=== PATIENT | male | born 1950 | race Caucasian/White ===

== ENCOUNTER → 2016-07-28 | Outpatient (CLI) | payer OTHER, MEDICARE | LOC: FIMAGING 09:17 | PROVIDERS: ATTEND Internal Medicine Hematology & Oncology | DX: Z12.89 Encounter for screening for malignant neoplasm of other sites (principal); R97.20 Elevated prostate specific antigen [PSA]; C61 Malignant neoplasm of prostate | CPT/HCPCS: 78306; A9503 ==

== ENCOUNTER → 2016-08-12 | Outpatient (CLI) | payer OTHER, MEDICARE | LOC: CIMAGING 10:06 | PROVIDERS: ATTEND Internal Medicine Hematology & Oncology | DX: Z03.89 Encounter for observation for other suspected diseases and conditions ruled out (principal); K76.89 Other specified diseases of liver; K76.0 Fatty (change of) liver, not elsewhere classified; Z85.46 Personal history of malignant neoplasm of prostate | CPT/HCPCS: 76705-PO ==

== ENCOUNTER → 2017-03-02 | Outpatient (CLI) | payer OTHER, MEDICARE | LOC: FIMAGING 09:22 | PROVIDERS: ATTEND Internal Medicine Hematology & Oncology | DX: S22.42XA Multiple fractures of ribs, left side, initial encounter for closed fracture (principal); C61 Malignant neoplasm of prostate | CPT/HCPCS: 78306; A9503 ==

== ENCOUNTER 2017-03-11 13:45 | Emergency (ER) | payer OTHER, MEDICARE ==
[2017-03-11 13:56] VITALS: TEMP 97.7
--- NOTE | 2017-03-11 14:05 | EDPHY ---
H & P Stated Complaint: lac to l hand with saw Time Seen by Provider: 03/11/17 14:04 HPI/ROS: HPI: This is a 67-year-old male presents with Chief Complaint: lac to l hand with saw Location: Left hand Quality: Laceration Duration: Prior to arrival Signs and Symptoms: + bleeding, no radiation, no numbness, no weakness, no tingling, no incontinence, no decreased range of motion, no swelling, no pain Timing: Acute Severity: Moderate Context: Patient reports he was 10 cream hit in his shed using a saw when he accidentally slipped and cut his the palm of his left hand. Immediately started to bleed so patient used a break to apply pressure. He went into the house to inform his of his accident who drove him to the emergency room for further evaluation. Right-hand dominant. He denies any pain/paresthesias/ decreased range of motion/skin color changes. Reports tetanus up-to-date. Denies being on blood thinners. Denies working with metal or concern for foreign body. Modifying Factors: Direct pressure Comment: ROS: see HPI Constitutional: No fever, no chills, no weight loss Eyes: No blurred vision Respiratory: No shortness of breath, no cough Cardiovascular: No chest pain Gastrointestinal: No nausea, no vomiting no diarrhea Genitourinary: No dysuria Extremities: No myalgias Neurologic: No weakness, no numbness Skin: No rashes Hematologic: No bruising, no bleeding MEDICAL/SURGICAL/SOCIAL HISTORY: Medical/Surgical history: PROSTATE CANCER/l hip mets/surg l finger/foot and shoulder Social history: . CONSTITUTIONAL: Extremely pleasant elderly white male, awake and alert, no obvious distress HEENT: Atraumatic and normocephalic. NECK: supple, no midline tenderness, flexion 45 degrees, extension 45 degrees, right and left lateral flexion 45 degrees. No meningismus. Cardiovascular: Normal S1/S2, regular rate, regular rhythm, without murmur rub or gallop. PULMONARY/CHEST: Symmetrical and nontender. no crepitus. Clear to auscultation bilaterally. Good air movement. No accessory muscle usage. ABDOMEN: Soft, nondistended, nontender, no ecchymosis. PELVIC: no pain with rocking; bilateral hips flexion 125 degrees, extension 30 degrees, with no pain internal rotation and no pain external rotation. BACK: No midline tenderness, no paraspinous spasm, deep tendon reflexes 2/2, no pain with straight leg raise EXTREMITIES: 2/2 radial pulses, left palm; lateral aspect of mid hand sparing the MCP joint directly inferior to the 5th digit; 3.5 cm linear, complex laceration noted. DIP/PIP/MCP joint flexion/extension/light touch sensation fully intact. no deformities, no clubbing, no cyanosis or edema. NEUROLOGICAL: no focal neuro deficits. GCS 15. Light touch sensation intact. SKIN: Warm and dry, no erythema. no rash. Good capillary refill. Source: Patient, Family () Exam Limitations: No limitations - Personal History Current Tetanus/Diphtheria Vaccine: Yes - Medical/Surgical History Hx Asthma: No Hx Chronic Respiratory Disease: No Hx Diabetes: No Hx Cardiac Disease: No Hx Renal Disease: No Hx Cirrhosis: No Hx Alcoholism: No Hx HIV/AIDS: No Hx Splenectomy or Spleen Trauma: No Other PMH: PROSTATE CANCER/l hip mets/surg l finger/foot and shoulder - Social History Smoking Status: Never smoked Constitutional: Initial Vital Signs Temperature (C) 36.5 C 03/11/17 13:52 Heart Rate 72 03/11/17 13:52 Respiratory Rate 18 03/11/17 13:52 Blood Pressure 147/77 H 03/11/17 13:52 O2 Sat (%) 97 03/11/17 13:52 O2 Delivery Mode Room Air Allergies/Adverse Reactions: No Known Allergies Allergy (Verified 03/11/17 13:51) Home Medications: Medication Instructions Recorded Advil 07/10/15 Hydrocortisone 07/10/15 KETOCONAZOLE 07/10/15 Lupron 07/10/15 Ventolin Hfa Inhaler 07/10/15 Medical Decision Making Procedures: Procedure: Laceration repair. Verbal consent was obtained from the patient. The 3.5 cm, linear, complex laceration on the left mid hand palmar side lateral aspect was anesthetized in the usual fashion the using 6 mL of 0.5% bupivacaine. The wound was irrigated, draped and explored to its base with a gloved finger. There were no deep structures involved. No tendon injury was identified. The wound was repaired with #8, 5-0 Prolene in a simple interrupted pattern. Good hemostasis was achieved and patient tolerated procedure well. The procedure was performed by myself. ED Course/Re-evaluation: Patient has politely declined any x-ray imaging as he has full range of motion. No concern for foreign body Tetanus up-to-date No signs of neurovascular compromise/tenting of skin/compartment syndrome/ extremities and joints examined above and below area of concern and are neurovascularly intact. Laceration repaired; dressing placed Wound care instructions provided. This patient was seen under the supervision of my secondary supervising physician. I evaluated care for this patient independently. Differential Diagnosis: Differential diagnosis includes but is not limited to laceration, nerve injury, tendon injury, foreign body. Departure - Departure Disposition: Home, Routine, Self-Care Clinical Impression: Laceration of left hand without complication, excluding fingers Qualifiers: Encounter type: initial encounter Qualified Code(s): S61.412A - Laceration without foreign body of left hand, initial encounter Condition: Good Instructions: Laceration (ED), Care For Your Stitches (ED) Additional Instructions: Keep the dressing dry and in place for 48 hours. After 48 hours, you may remove the dressing; wash the site daily with mild soap and water; then pat dry. Take Tylenol 650 mg every 4 hours and/or Ibuprofen 600 mg every 8 hours with food as needed for pain. Return to the emergency room in 7-10 days to have your sutures removed. Referrals: Carlos Guy DO [Primary Care Provider] - As per Instructions
[2017-03-11 15:28] VITALS: BP 147/84; PULSE 70; RESP 16; O2SAT 96
== END 2017-03-11 15:27 | disposition home or self-care (01) ==
PROC: 0HQGXZZ Repair Left Hand Skin, External Approach (ICD-10-PCS; principal; 2017-03-11)
DX: S61.412A Laceration without foreign body of left hand, initial encounter (principal); Z85.46 Personal history of malignant neoplasm of prostate; W27.0XXA Contact with workbench tool, initial encounter

== ENCOUNTER 2018-04-26 15:34 | Emergency (ER) | payer OTHER, MEDICARE ==
--- NOTE | 2018-04-26 16:01 | EDPHY ---
H & P Stated Complaint: L forearm injury Time Seen by Provider: 04/26/18 15:47 HPI/ROS: CHIEF COMPLAINT: Left wrist pain after fall HISTORY OF PRESENT ILLNESS: This is a 68-year-old male with left wrist pain after tripping on a step and falling forward, catching himself with his left arm , landing on his left side. He also reports some posterior left rib pain, slightly worse when he takes deep breath. He does not feel short of breath. He denies numbness or weakness involving his left arm. REVIEW OF SYSTEMS: A ten system review of systems was performed and is negative with the exception of the items mentioned in the HPI. Past medical history: Prostate cancer metastatic to his hip Past surgical history: Prostate Bilateral rotator cuff repairs Social history: He is here with his . He worked as a blas. Former smoker. General Appearance: Alert. Vital signs reviewed. Neck: Nontender to palpation over the cervical spine in the midline. No pain with active range motion of his neck. Respiratory: Lungs are clear to auscultation; no wheezes, rales, or rhonchi. Cardiovascular: Regular rate and rhythm; no murmur, rub, or gallop. Gastrointestinal: Abdomen is soft and nontender. Skin: Warm and dry, no rashes on exposed skin, normal color. Back: Nontender to palpation over thoracic and lumbar spine. Thorax: Nontender to palpation over the bony thorax. No crepitus. Extremities: Tender to palpation over the distal radius. No other tenderness with palpation of the bones of both arms and hands. Neuro: Alert and oriented. Sensation intact over both upper extremities. Pulses: 2+ left radial pulse. Psychiatric: Normal affect. - Personal History Current Tetanus/Diphtheria Vaccine: Yes Current Tetanus Diphtheria and Acellular Pertussis (TDAP): Yes - Medical/Surgical History Hx Asthma: No Hx Chronic Respiratory Disease: Yes Hx Diabetes: No Hx Cardiac Disease: No Hx Renal Disease: No Hx Cirrhosis: No Hx Alcoholism: No Hx HIV/AIDS: No Hx Splenectomy or Spleen Trauma: No Other PMH: PROSTATE CANCER/l hip mets/surg l finger/foot and shoulder, COPD, - Social History Smoking Status: Former smoker Constitutional: Initial Vital Signs Temperature (C) 36.9 C 04/26/18 15:39 Heart Rate 99 04/26/18 15:39 Respiratory Rate 16 04/26/18 15:39 Blood Pressure 133/74 H 04/26/18 15:39 O2 Sat (%) 93 04/26/18 15:39 O2 Delivery Mode Room Air Allergies/Adverse Reactions: No Known Allergies Allergy (Verified 04/26/18 15:38) Home Medications: Medication Instructions Recorded Advil 07/10/15 Hydrocortisone 07/10/15 KETOCONAZOLE 07/10/15 Lupron 07/10/15 Ventolin Hfa Inhaler 07/10/15 Symbicort 80-4.5 Mcg Inhaler 04/26/18 Medical Decision Making Procedures: The patient was placed in a thumb spica splint which was fashioned out of ortho glass by the emergency department control room technician. I examined the patient post splint placement. He was splinted in a position of comfort. Neurovascular status is intact. The patient has a sling at home that he will try. ED Course/Re-evaluation: Patient with a trip and fall who presents with left wrist pain. X-ray shows a distal radius fracture with minimal dorsal angulation. Thumb spica ortho glass splint placed. Patient sees Dr. Nunn and will contact his office to arrange further care of this fracture. CXR, per radiology reading, shows possible nondisplaced anterior sixth rib fracture. I cannot reproduce pain at this point on exam, but this could possibly account for his mild chest discomfort. No ptx on cxr. Differential Diagnosis: Considered a differential diagnosis that includes but is not limited to fracture , dislocation, sprain, strain, laceration, and contusion. Departure - Departure Disposition: Home, Routine, Self-Care Clinical Impression: Radius distal fracture Qualifiers: Encounter type: initial encounter Fracture type: closed Fracture morphology: Colles' Laterality: left Qualified Code(s): S52.532A - Colles' fracture of left radius, initial encounter for closed fracture Condition: Good Instructions: Wrist Fracture in Adults (ED) Additional Instructions: Call Dr. Dos Santos's office tomorrow. Let them know that you have a distal radius fracture that has been splinted in the emergency department. Hopefully you can be seen this week. Let the office staff know that your wrist is splinted in a position of comfort, not in a true anatomic position. Ice and elevate. Adult Pain & Fever Control: We recommend Acetaminophen (Tylenol) and Ibuprofen (Motrin,Advil) for pain and fever control. When fever is high or pain severe, both drugs can be used at the same time, but at different intervals. Please note the time differences. Your dose is: Acetaminophen 650mg every 4 to 6 hours Ibuprofen 400mg every 6 hours with food OR Note: do not take Acetaminophen with Hydrocodone (Vicodin, Lortab) or Oycodone (Percocet). These medications also contain Acetaminophen. No more than 3000mg of Acetaminophen should be taken in 24 hours (for an adult). Referrals: Carlos Guy DO [Primary Care Provider] - As per Instructions Ziggy Dos Santos MD [Medical Doctor] - As per Instructions
[2018-04-26 17:28] VITALS: BP 109/76
== END 2018-04-26 17:39 | disposition home or self-care (01) ==
PROC: 2W3DX1Z Immobilization of Left Lower Arm using Splint (ICD-10-PCS; principal; 2018-04-26)
DX: S52.532A Colles' fracture of left radius, initial encounter for closed fracture (principal); R07.81 Pleurodynia; W01.0XXA Fall on same level from slipping, tripping and stumbling without subsequent striking against object, initial encounter